=== PATIENT | female | born 1930 | race Caucasian/White ===

== ENCOUNTER 2017-03-23 17:58 | Emergency (ER) | payer MEDICARE, OTHER ==
[~2017-03-23] VITALS: Ht 149.9 cm; Wt 50.8 kg
[2017-03-23 18:31] LABS: BASO # 0.1 x10^3/uL (0.0-0.2); BASO % 1 % (0-3); EOS % 3 % (0-3); HEMATOCRIT 38.1 % (36.0-47.0); HEMOGLOBIN 12.6 g/dL (12.0-15.5); LYMPH # 2.4 x10^3/uL (1.0-4.8); LYMPH % 30 % (24-48); MEAN CORPUSCULAR HEMOGLOBIN 32 pg (25-35); MEAN CORPUSCULAR HGB CONC 33 g/dL (31-37); MEAN CORPUSCULAR VOLUME 96 fL (79-100); MONO % 10 % (0-9); NEUT % 56 % (31-73); PLATELET COUNT 211 x10^3/uL (140-400); RED BLOOD COUNT 3.98 x10^6/uL (3.50-5.40); RED CELL DISTRIBUTION WIDTH 14.4 % (11.5-14.5); WHITE BLOOD COUNT 7.9 x10^3/uL (4.0-11.0)
[2017-03-23 18:35] LABS: CREATININE 0.8 mg/dL (0.6-1.0); GFR 67.7
--- NOTE | 2017-03-23 18:41 | PHYS DOC ---
Past Medical History Past Medical History: Arthritis, Cancer, High Cholesterol, Hypertension, Other Additional Past Medical Histor: L BREAST CA Past Surgical History: Other Additional Past Surgical Histo: L LUMPECTOMY, ANGIOPLASTY Alcohol Use: Rarely Drug Use: None Adult General Chief Complaint Chief Complaint: LOWER EXT PAIN HPI HPI Patient is a 86 year old female presents acute onset right medial mid thigh pain starting earlier this morning. Pain is described as sharp cramping is intermittent and is worse with palpation and ambulation. Patient is currently pain-free. Patient denies muscle cramping, injury or sprain. Patient denies chest pain shortness of breath this. No history of DVT or PE. No other acute symptoms or complaints. Patient referred to the emergency department for further evaluation.[] Review of Systems Review of Systems Review symptoms as per history of present illness. All other review symptoms are negative. Allergies Allergies Allergies Coded Allergies Type Severity Reaction Last Updated Verified morphine Allergy Severe Anxiety 03/23/17 Yes aspirin Allergy Intermediate 03/23/17 Yes Physical Exam Physical Exam Constitutional: Well developed, well nourished, no acute distress, non-toxic appearance. [] HENT: Normocephalic, atraumatic, bilateral external ears normal, oropharynx moist, no oral exudates, nose normal. [] Eyes: PERRLA, EOMI, conjunctiva normal, no discharge. [] Neck: Normal range of motion, no tenderness, supple, no stridor. [] Cardiovascular:Heart rate regular rhythm, no murmur, femoral, popliteal and pedal pulses 2+ and symmetric. [] Lungs & Thorax: Bilateral breath sounds clear to auscultation [] Abdomen: Bowel sounds normal, soft, no tenderness, no masses, no pulsatile masses. [] Skin: Warm, dry, no erythema, no rash. [] Back: No tenderness, no CVA tenderness. [] Extremities: No tenderness, right mid medial thigh pain, tenderness, no appreciated swelling, erythema or bruising. No palpable venous cord.[] Neurologic: Alert and oriented X 3, normal motor function, normal sensory function, no focal deficits noted. [] Psychologic: Affect normal, judgement normal, mood normal. [] Current Patient Data Vital Signs Vital Signs Date Time Temp Pulse Resp B/P (MAP) Pulse Ox O2 Delivery O2 Flow Rate FiO2 03/23/17 18:05 97.9 70 20 184/73 (110) 100 Room Air 97.9 Lab Values Laboratory Tests Test 03/23/17 18:10 White Blood Count 7.9 x10^3/uL (4.0-11.0) Red Blood Count 3.98 x10^6/uL (3.50-5.40) Hemoglobin 12.6 g/dL (12.0-15.5) Hematocrit 38.1 % (36.0-47.0) Mean Corpuscular Volume 96 fL (79-100) Mean Corpuscular Hemoglobin 32 pg (25-35) Mean Corpuscular Hemoglobin Concent 33 g/dL (31-37) Red Cell Distribution Width 14.4 % (11.5-14.5) Platelet Count 211 x10^3/uL (140-400) Neutrophils (%) (Auto) 56 % (31-73) Lymphocytes (%) (Auto) 30 % (24-48) Monocytes (%) (Auto) 10 % (0-9) H Eosinophils (%) (Auto) 3 % (0-3) Basophils (%) (Auto) 1 % (0-3) Neutrophils # (Auto) 4.4 x10^3uL (1.8-7.7) Lymphocytes # (Auto) 2.4 x10^3/uL (1.0-4.8) Monocytes # (Auto) 0.8 x10^3/uL (0.0-1.1) Eosinophils # (Auto) 0.2 x10^3/uL (0.0-0.7) Basophils # (Auto) 0.1 x10^3/uL (0.0-0.2) Sodium Level 141 mmol/L (136-145) Potassium Level 4.0 mmol/L (3.5-5.1) Chloride Level 103 mmol/L (98-107) Carbon Dioxide Level 30 mmol/L (21-32) Anion Gap 8 (6-14) Blood Urea Nitrogen 20 mg/dL (7-20) Creatinine 0.8 mg/dL (0.6-1.0) Estimated GFR (Cockcroft-Gault) 67.7 BUN/Creatinine Ratio 25 (6-20) H Glucose Level 105 mg/dL (70-99) H Calcium Level 9.0 mg/dL (8.5-10.1) Total Bilirubin 0.4 mg/dL (0.2-1.0) Aspartate Amino Transferase (AST) 17 U/L (15-37) Alanine Aminotransferase (ALT) 13 U/L (14-59) L Alkaline Phosphatase 63 U/L (46-116) Total Protein 7.3 g/dL (6.4-8.2) Albumin 3.5 g/dL (3.4-5.0) Albumin/Globulin Ratio 0.9 (1.0-1.7) L Laboratory Tests 03/23/17 18:10 Laboratory Tests 03/23/17 18:10 EKG EKG [] Radiology/Procedures Radiology/Procedures [Venous Doppler ultrasound right lower extremity negative for presence of DVT] Course & Med Decision Making Course & Med Decision Making Pertinent Labs and Imaging studies reviewed. (See chart for details) [Right thigh soft-tissue muscle tenderness/pain. Electrolytes are normal. No evidence of DVT. Recommend supportive care. PCP follow-up.] Dragon Disclaimer Dragon Disclaimer This electronic medical record was generated, in whole or in part, using a voice recognition dictation system. Departure Departure Impression: Primary Impression: Pain in right thigh Disposition: 01 HOME, SELF-CARE Condition: GOOD Patient Instructions: Musculoskeletal Pain Additional Instructions: You were evaluated in the emergency department for right thigh pain. Lab work ultrasound were obtained without evidence of blood, her electrolyte abnormality. Please take Tylenol and ibuprofen for pain and apply warm moist heat 30-40 minutes every 3 hours as needed. Follow-up with your PCP as needed. Return to the ED if new or worsening symptoms. LASHAUN FIELD DO Mar 23, 2017 18:40
[2017-03-23 18:42] LABS: ALBUMIN 3.5 g/dL (3.4-5.0); ALBUMIN/GLOBULIN RATIO 0.9 (1.0-1.7); TOTAL BILIRUBIN 0.4 mg/dL (0.2-1.0); TOTAL PROTEIN 7.3 g/dL (6.4-8.2)
--- NOTE | 2017-03-23 19:30 | RAD ---
Right lower extremity venous duplex study 03/23/2017 Clinical History: Right leg pain. Technique: Using a combination of real time ultrasound imaging and color-flow and pulse Doppler imaging techniques along with graded compression and augmentation, duplex evaluation of the deep venous system of the right lower extremity was performed. Multiple images were obtained. Findings: There is no sonographic evidence of deep venous thrombosis involving the visualized deep venous structures of right lower extremity. Impression: Negative study. Electronically signed by: Solo Augustine MD (03/23/2017 7:27 PM) [facility]
[2017-03-23 20:08] VITALS: BP 167/70
== END 2017-03-23 20:30 | disposition home or self-care (01) ==
LOC: ER 17:58
DX: M79.651 Pain in right thigh (principal); E78.00 Pure hypercholesterolemia, unspecified; I10 Essential (primary) hypertension; M19.90 Unspecified osteoarthritis, unspecified site; Z98.61 Coronary angioplasty status; Z88.6 Allergy status to analgesic agent; Z88.5 Allergy status to narcotic agent
CPT/HCPCS: 36415; 80053; 85025; 93971; 99285-25

== ENCOUNTER 2017-10-28 17:20 | Emergency (ER) | payer OTHER ==
[2017-10-28 18:12] LABS: ADD MAN DIFF? NO
[2017-10-28 18:15] LABS: BASO # 0.1 x10^3/uL (0.0-0.2); BASO % 1 % (0-3); EOS # 0.2 x10^3/uL (0.0-0.7); EOS % 4 % (0-3); HEMATOCRIT 38.1 % (36.0-47.0); HEMOGLOBIN 12.9 g/dL (12.0-15.5); LYMPH # 2.2 x10^3/uL (1.0-4.8); LYMPH % 36 % (24-48); MEAN CORPUSCULAR HEMOGLOBIN 32 pg (25-35); MEAN CORPUSCULAR HGB CONC 34 g/dL (31-37); MEAN CORPUSCULAR VOLUME 95 fL (79-100); MONO # 0.6 x10^3/uL (0.0-1.1); MONO % 10 % (0-9); NEUT % 49 % (31-73); PLATELET COUNT 196 x10^3/uL (140-400); RED BLOOD COUNT 4.03 x10^6/uL (3.50-5.40); RED CELL DISTRIBUTION WIDTH 14.4 % (11.5-14.5); WHITE BLOOD COUNT 6.1 x10^3/uL (4.0-11.0)
[2017-10-28 18:26] LABS: ANION GAP 9 (6-14); BLOOD UREA NITROGEN 23 mg/dL (7-20); BUN/CREATININE RATIO 33 (6-20); CALCIUM 9.4 mg/dL (8.5-10.1); CARBON DIOXIDE 29 mmol/L (21-32); CHLORIDE 104 mmol/L (98-107); CREATININE 0.7 mg/dL (0.6-1.0); GLUCOSE 105 mg/dL (70-99); POTASSIUM 3.9 mmol/L (3.5-5.1); SODIUM 142 mmol/L (136-145)
[2017-10-28 18:31] LABS: ALBUMIN 3.4 g/dL (3.4-5.0); ALBUMIN/GLOBULIN RATIO 0.9 (1.0-1.7); ALK PHOS 63 U/L (46-116); AST (SGOT) 14 U/L (15-37); MAGNESIUM 2.1 mg/dL (1.8-2.4); TOTAL BILIRUBIN 0.4 mg/dL (0.2-1.0); TOTAL PROTEIN 7.1 g/dL (6.4-8.2)
[2017-10-28 18:34] LABS: TROPONINI < 0.017 ng/mL (0.000-0.055)
[2017-10-28 18:40] LABS: ALT (SGPT) 13 U/L (14-59); CKMB INDEX 0.6 % (0-4); CKMB MASS 0.6 ng/mL (0.0-3.6); CREATINE KINASE 98 U/L (26-192)
== END 2017-10-28 20:11 | disposition home or self-care (01) ==
LOC: ER 17:20
DX: R07.2 Precordial pain (principal); R06.02 Shortness of breath; E78.00 Pure hypercholesterolemia, unspecified; I10 Essential (primary) hypertension; I25.10 Atherosclerotic heart disease of native coronary artery without angina pectoris; Z95.5 Presence of coronary angioplasty implant and graft; Z88.5 Allergy status to narcotic agent; Z88.6 Allergy status to analgesic agent
CPT/HCPCS: 36415; 71045; 80053; 82553; 83735; 84484; 85025; 85610; 93005; 99285-25

== ENCOUNTER → 2017-12-16 | Outpatient (CLI) | payer OTHER | END | disposition home or self-care (01) | LOC: ECHO 10:39 | DX: I25.10 Atherosclerotic heart disease of native coronary artery without angina pectoris (principal); I36.1 Nonrheumatic tricuspid (valve) insufficiency; I10 Essential (primary) hypertension; E78.00 Pure hypercholesterolemia, unspecified | CPT/HCPCS: 93306 ==

== ENCOUNTER → 2017-12-21 | Outpatient (CLI) | payer OTHER ==
[2017-12-21] MEDS: REGADENOSON 0.4 MG/5 ML DISP.SYRIN. IV (11:37)
== END | disposition home or self-care (01) ==
LOC: NM 09:26
DX: I25.10 Atherosclerotic heart disease of native coronary artery without angina pectoris (principal); I10 Essential (primary) hypertension; E78.00 Pure hypercholesterolemia, unspecified; Z95.5 Presence of coronary angioplasty implant and graft
CPT/HCPCS: 78452; 93017; 96374; 96375; 96376; A9500; J2785